=== PATIENT | male | born 1955 | race Two or more races ===

== ENCOUNTER 2016-06-27 09:03 | Outpatient (CLI) | payer OTHER | END 2016-06-27 09:04 | disposition home or self-care (01) | DX: G47.33 Obstructive sleep apnea (adult) (pediatric) (principal) ==

== ENCOUNTER 2016-08-01 09:21 | Outpatient (CLI) | payer OTHER | END 2016-08-01 09:22 | disposition home or self-care (01) | DX: G47.33 Obstructive sleep apnea (adult) (pediatric) (principal) ==

== ENCOUNTER 2017-02-06 10:33 | Outpatient (CLI) | payer OTHER | END 2017-02-06 10:34 | disposition home or self-care (01) | LOC: SC 10:33 | PROVIDERS: ATTEND Nurse Practitioner Family | DX: G47.33 Obstructive sleep apnea (adult) (pediatric) (principal) | CPT/HCPCS: 99212; 99214 ==

== ENCOUNTER 2017-04-06 09:40 | Outpatient (CLI) | payer OTHER ==
[2017-04-06 19:23] LABS: BASOPHILS % (AUTO) 0.7 %; EOSINOPHILS # (AUTO) 0.2 10^3/uL (0.0-0.7); EOSINOPHILS % (AUTO) 3.7 %; HCT - HEMATOCRIT 41.7 % (42.0-52.0); LYMPHOCYTES # (AUTO) 1.2 10^3/uL (1.5-3.5); LYMPHOCYTES % (AUTO) 26.2 %; MEAN CORPUSCULAR HEMOGLOBIN 26.5 pg (27.0-31.0); MEAN CORPUSCULAR HGB CONC 31.2 g/dL (32.0-36.0); MEAN CORPUSCULAR VOLUME 84.8 fL (80.0-94.0); MEAN PLATELET VOLUME 6.9 fL (7.4-11.4); MONOCYTES # (AUTO) 0.4 10^3/uL (0.0-1.0); NEUTROPHILS # (AUTO) 2.8 10^3/uL (1.5-6.6); NEUTROPHILS % (AUTO) 60.4 %; NUCLEATED RED BLOOD CELLS AUTO 0.1 /100WBC; RED BLOOD COUNT 4.91 10^6/uL (4.70-6.10); RED CELL DISTRIBUTION WIDTH 15.4 % (12.0-15.0); UNCORRECTED WHITE BLOOD COUNT 4.7 x10^3/uL; WHITE BLOOD COUNT 4.7 x10^3/uL (4.8-10.8)
[2017-04-06 20:16] LABS: ALBUMIN/GLOBULIN RATIO 1.5 (1.0-2.2); BILIRUBIN,TOTAL 0.6 mg/dL (0.2-1.0); BUN - BLOOD UREA NITROGEN 14 mg/dL (6-20); CALCIUM 9.2 mg/dL (8.5-10.3); CARBON DIOXIDE - CO2 25 mmol/L (21-32); CHLORIDE 108 mmol/L (101-111); CHOL/HDL RATIO 4.9 (<5.0); CHOLESTEROL 238 mg/dL; CREATININE 0.9 mg/dL (0.6-1.2); GFR - MDRD 86 (>89); GLUCOSE 93 mg/dL (70-100); HDL CHOLESTEROL 49 mg/dL; LDL/HDL RATIO 3.4 (<3.6); POTASSIUM 4.1 mmol/L (3.5-5.0); SODIUM 137 mmol/L (135-145); TOTAL PROTEIN 6.9 g/dL (6.7-8.2); TRIGLYCERIDES 122 mg/dL; VLDL CHOLESTEROL 24 mg/dL
== END 2017-04-06 09:41 | disposition home or self-care (01) ==
LOC: LAB.WCP 09:40
PROVIDERS: ATTEND Family Medicine
DX: K62.7 Radiation proctitis (principal); L30.9 Dermatitis, unspecified; D50.9 Iron deficiency anemia, unspecified; G47.33 Obstructive sleep apnea (adult) (pediatric); C61 Malignant neoplasm of prostate; E78.5 Hyperlipidemia, unspecified
CPT/HCPCS: 36415; 80050; 80061; 84153

== ENCOUNTER 2017-04-10 08:38 | Outpatient (CLI) | payer OTHER | END 2017-04-10 08:39 | disposition home or self-care (01) | LOC: SC 08:38 | PROVIDERS: ATTEND Nurse Practitioner Family | DX: G47.33 Obstructive sleep apnea (adult) (pediatric) (principal) | CPT/HCPCS: 99212; 99214 ==

== ENCOUNTER 2017-06-13 08:50 | Outpatient (CLI) | payer OTHER | END 2017-06-13 08:51 | disposition home or self-care (01) | LOC: SC 08:50 | PROVIDERS: ATTEND Nurse Practitioner Family | DX: G47.33 Obstructive sleep apnea (adult) (pediatric) (principal) | CPT/HCPCS: 99212; 99214 ==

== ENCOUNTER 2017-10-23 08:44 | Outpatient (CLI) | payer OTHER | END 2017-10-23 08:45 | disposition home or self-care (01) | LOC: SC 08:44 | PROVIDERS: ATTEND Nurse Practitioner Family | DX: G47.33 Obstructive sleep apnea (adult) (pediatric) (principal) | CPT/HCPCS: 99212; 99214 ==

== ENCOUNTER 2018-01-02 08:35 | Outpatient (CLI) | payer OTHER | END 2018-01-02 08:36 | disposition home or self-care (01) | LOC: RT 08:35 | PROVIDERS: ATTEND Family Medicine | DX: J20.9 Acute bronchitis, unspecified (principal) | CPT/HCPCS: 94010 ==

== ENCOUNTER 2018-04-18 15:35 | Outpatient (CLI) | payer OTHER | END 2018-04-18 15:36 | disposition home or self-care (01) | LOC: SC 15:35 | PROVIDERS: ATTEND Nurse Practitioner Family | DX: G47.33 Obstructive sleep apnea (adult) (pediatric) (principal) | CPT/HCPCS: 99212; 99214 ==

== ENCOUNTER 2018-04-19 09:23 | Outpatient (CLI) | payer OTHER ==
[2018-04-19 09:45] LABS: BASOPHILS % (AUTO) 0.6 %; EOSINOPHILS # (AUTO) 0.2 10^3/uL (0.0-0.7); HGB - HEMOGLOBIN 13.5 g/dL (14.0-18.0); LYMPHOCYTES # (AUTO) 1.1 10^3/uL (1.5-3.5); LYMPHOCYTES % (AUTO) 24.7 %; MEAN CORPUSCULAR HEMOGLOBIN 26.5 pg (27.0-31.0); MEAN CORPUSCULAR HGB CONC 31.9 g/dL (32.0-36.0); MEAN CORPUSCULAR VOLUME 83.1 fL (80.0-94.0); MEAN PLATELET VOLUME 6.4 fL (7.4-11.4); MONOCYTES # (AUTO) 0.4 10^3/uL (0.0-1.0); MONOCYTES % (AUTO) 9.1 %; NEUTROPHILS # (AUTO) 2.8 10^3/uL (1.5-6.6); NEUTROPHILS % (AUTO) 60.6 %; PLT - PLATELET COUNT 355 10^3/uL (130-450); RED BLOOD COUNT 5.09 10^6/uL (4.70-6.10); RED CELL DISTRIBUTION WIDTH 15.4 % (12.0-15.0); WHITE BLOOD COUNT 4.6 x10^3/uL (4.8-10.8)
[2018-04-19 09:54] LABS: ALBUMIN/GLOBULIN RATIO 1.5 (1.0-2.2); BILIRUBIN,TOTAL 0.4 mg/dL (0.2-1.0); CALCIUM 8.6 mg/dL (8.5-10.3); CREATININE 0.9 mg/dL (0.6-1.2); TOTAL PROTEIN 6.7 g/dL (6.7-8.2)
== END 2018-04-19 09:24 | disposition home or self-care (01) ==
LOC: LAB 09:23
PROVIDERS: ATTEND Internal Medicine Gastroenterology
DX: R10.13 Epigastric pain (principal); D64.9 Anemia, unspecified
CPT/HCPCS: 36415; 80053; 83690; 85025

== ENCOUNTER 2018-04-24 09:20 | Outpatient (CLI) | payer OTHER ==
--- NOTE | 2018-04-24 15:39 | XRAY Report ---
Reason: EPIGASTRIC PAIN, COUGH, CHRONIC, ANEMIA Procedure Date: 04/24/2018 Accession Number: [id number] / [id number] Procedure: XR - Chest 2 View X-Ray CPT Code: 47881 FULL RESULT: EXAM: CHEST RADIOGRAPHY EXAM DATE: 04/24/2018 09:32 AM. CLINICAL HISTORY: EPIGASTRIC PAIN, COUGH, CHRONIC, ANEMIA. COMPARISON: 07/09/2014 1:57 AM. TECHNIQUE: 2 views. FINDINGS: Lungs/Pleura: No focal opacities evident. No pleural effusion. No pneumothorax. Normal volumes. Mediastinum: Heart and mediastinal contours are unremarkable. Other: None. IMPRESSION: No acute cardiopulmonary abnormality. RADIA
== END 2018-04-24 09:21 | disposition home or self-care (01) ==
LOC: DI 09:20
PROVIDERS: ATTEND Internal Medicine Gastroenterology
DX: R10.13 Epigastric pain (principal); R05 Cough
CPT/HCPCS: 71046; 93005

== ENCOUNTER 2018-04-26 08:23 | Day surgery (SDC) | payer OTHER ==
[2018-04-26] MEDS ORDERED: LACTATED RINGERS 1,000 ML IV ONE (08:43)
[2018-04-26] MEDS ORDERED: LACTATED RINGERS 500 ML IV ONE (08:48)
[2018-04-26] MEDS ORDERED: LIDO GARGLE 30 ML BOTTLE ONE (10:11)
[2018-04-26] MEDS ORDERED: fentaNYL 100 MCG/2 ML VIAL IVP ONE (10:30)
[2018-04-26] MEDS ORDERED: MIDAZOLAM 2 MG/2 ML VIAL IVP ONE (10:30)
[2018-04-26 11:14] VITALS: BP 111/80
== END 2018-04-26 08:24 | disposition home or self-care (01) ==
LOC: SDS 08:23
PROVIDERS: ATTEND Internal Medicine Gastroenterology
PROC: 0DB78ZX Excision of Stomach, Pylorus, Via Natural or Artificial Opening Endoscopic, Diagnostic (ICD-10-PCS; 2018-04-26)
PROC: 0DB68ZZ Excision of Stomach, Via Natural or Artificial Opening Endoscopic (ICD-10-PCS; 2018-04-26)
PROC: 0DB58ZX Excision of Esophagus, Via Natural or Artificial Opening Endoscopic, Diagnostic (ICD-10-PCS; principal; 2018-04-26 14:30)
DX: R10.13 Epigastric pain (principal); K21.0 Gastro-esophageal reflux disease with esophagitis; K31.7 Polyp of stomach and duodenum; R13.10 Dysphagia, unspecified; R05 Cough; D50.9 Iron deficiency anemia, unspecified; K62.7 Radiation proctitis; G47.33 Obstructive sleep apnea (adult) (pediatric); Z85.46 Personal history of malignant neoplasm of prostate; Z83.79 Family history of other diseases of the digestive system; Z86.010 Personal history of colon polyps; Z79.899 Other long term (current) drug therapy
CPT/HCPCS: 43239; 43251; A9270; J7120

== ENCOUNTER 2018-05-17 19:26 | Outpatient (CLI) | payer OTHER ==
--- NOTE | 2018-05-18 12:04 | Ultrasound Report ---
Reason: EPIGASTRIC PAIN Procedure Date: 05/17/2018 Accession Number: [id number] / [id number] Procedure: US - Abdomen Limited CPT Code: FULL RESULT: EXAM: ABDOMEN ULTRASOUND LIMITED, RUQ EXAM DATE: 05/17/2018 07:58 PM. CLINICAL HISTORY: Epigastric pain. COMPARISON: None. TECHNIQUE: Real-time scanning was performed with static images obtained. FINDINGS: Liver: Echotexture is mildly heterogeneous and echogenic which can be seen with steatosis. Right lobe of the liver measures at least 12.8 cm. Main portal vein flow: Hepatopetal. Gallbladder: Normal. No stones, wall thickening, or sonographic Everett's sign. Biliary System: CBD measures 4 mm. No intrahepatic or extrahepatic ductal dilatation. Other: Right kidney measures up to 10.6 cm and is grossly unremarkable with no hydronephrosis. IMPRESSION: No cholecystitis or cholelithiasis. Echogenic liver which can be seen with parenchymal disease such as steatosis. RADIA
== END 2018-05-17 19:27 | disposition home or self-care (01) ==
LOC: DI 19:26
PROVIDERS: ATTEND Internal Medicine Gastroenterology
DX: R10.13 Epigastric pain (principal)
CPT/HCPCS: 76705

== ENCOUNTER 2018-06-06 11:22 | Outpatient (CLI) | payer OTHER ==
[2018-06-06 19:41] LABS: ALBUMIN 4.1 g/dL (3.2-5.5); ALBUMIN/GLOBULIN RATIO 1.4 (1.0-2.2); ALKALINE PHOSPHATASE 39 IU/L (42-121); ALT ALANINE AMINOTRANSFERASE 18 IU/L (10-60); AST ASPARTATE AMINOTRANSFERASE 21 IU/L (10-42); BUN - BLOOD UREA NITROGEN 21 mg/dL (6-20); CALCIUM 9.4 mg/dL (8.5-10.3); CARBON DIOXIDE - CO2 24 mmol/L (21-32); CHLORIDE 107 mmol/L (101-111); CHOL/HDL RATIO 5.5 (<5.0); CHOLESTEROL 251 mg/dL; CREATININE 0.8 mg/dL (0.6-1.2); GFR - MDRD 98 (>89); GLUCOSE 85 mg/dL (70-100); HDL CHOLESTEROL 46 mg/dL; LDL CHOLESTEROL,CALCULATED 184 mg/dL; SODIUM 138 mmol/L (135-145); VLDL CHOLESTEROL 21 mg/dL
== END 2018-06-06 23:59 | disposition home or self-care (01) ==
LOC: LAB.WCP 11:22
PROVIDERS: ATTEND Family Medicine
DX: E78.5 Hyperlipidemia, unspecified (principal)
CPT/HCPCS: 36415; 80053; 80061; 83721

== ENCOUNTER 2018-06-18 11:57 | Outpatient (CLI) | payer OTHER ==
[2018-06-18] MEDS ORDERED: SINCALIDE 5 MCG VIAL ONE (14:39)
[2018-06-18] MEDS ORDERED: SINCALIDE 1.72 MCG in SODIUM CHLORIDE 0.9% 50 ML IV ONE (16:31)
--- NOTE | 2018-06-18 16:32 | Nuclear Medicine Report ---
Reason: EPIGASTRIC PAIN Procedure Date: 06/18/2018 Accession Number: [id number] / [id number] Procedure: NM - Hepatobiliary HIDA w/ Rx CPT Code: FULL RESULT: EXAM: HEPATOBILIARY SCAN WITH CCK/KINEVAC ADMINISTRATION EXAM DATE: 06/18/2018 04:22 PM. CLINICAL HISTORY: EPIGASTRIC PAIN. COMPARISON: None. TECHNIQUE: Following the intravenous administration of 5 mCi of Tc99m Mebrofenin, a hepatobiliary scan was done centered on the liver and gallbladder in multiple sequential images and projections. Following the intravenous administration of 1.7 mcg of CCK/ Kinevac over the course of approximately 60 minutes, dynamic imaging was done and the gallbladder ejection fraction was calculated. FINDINGS: Normal extraction of tracer from the blood pool indicating normal hepatocellular function. The liver size and shape is grossly within normal limits. Appearance of tracer in the biliary tree as early as 0-5 minutes, within normal limits. Appearance of tracer in the gallbladder as early as 5-10 minutes, within normal limits, with good progression of filling throughout the remainder of the initial hour. Appearance of tracer in the small bowel as early as 35 minutes, within normal limits. With CCK administration, the gallbladder demonstrates an effective contraction. The gallbladder ejection fraction is calculated to be 85%, well above the lower limit of normal of 38% for a 60-minute injection. No evidence of enteric reflux into the stomach. No significant collection of tracer remaining in the common bile duct by the end of the study. IMPRESSION: 1. No scintigraphic evidence of acute cholecystitis. 2. Patent common bile duct. 3. Gallbladder ejection fraction is in the normal range. RADIA
== END 2018-06-18 11:58 | disposition home or self-care (01) ==
LOC: DI 11:57
PROVIDERS: ATTEND Internal Medicine Gastroenterology
DX: R10.13 Epigastric pain (principal)
CPT/HCPCS: 78227; J7040

== ENCOUNTER 2018-06-19 14:32 | Outpatient (CLI) | payer OTHER ==
--- NOTE | 2018-06-19 16:44 | XRAY Report ---
Reason: INFECTION OF PREPATELLAR BURSA Procedure Date: 06/19/2018 Accession Number: [id number] / [id number] Procedure: WCP - Knee 2 View LT CPT Code: FULL RESULT: EXAM: LEFT KNEE RADIOGRAPHY EXAM DATE: 06/19/2018 02:52 PM. CLINICAL HISTORY: INFECTION OF PREPATELLAR BURSA. COMPARISON: None. TECHNIQUE: 2 views. FINDINGS: Bones: No fractures, bone erosion or definite acute abnormality. Moderate sized quadriceps insertion patellar enthesophyte/spur. Joints: Normal. No effusion. No subluxations. Soft Tissues: Anterior, suprapatellar soft tissue edema/swelling. IMPRESSION: 1. Anterior, suprapatellar soft tissue edema/swelling. 2. No definite acute osseous abnormality. RADIA
== END 2018-06-19 14:33 | disposition home or self-care (01) ==
LOC: DI.WCP 14:32
PROVIDERS: ATTEND Physician Assistant
DX: M71.162 Other infective bursitis, left knee (principal)

== ENCOUNTER 2018-08-16 07:19 | Day surgery (SDC) | payer OTHER ==
[2018-08-16] MEDS ORDERED: LACTATED RINGERS 1,000 ML IV ONE (07:22)
[2018-08-16] MEDS ORDERED: LIDO GARGLE 30 ML BOTTLE ONE (08:44)
[2018-08-16] MEDS ORDERED: LIDO GARGLE 30 ML BOTTLE TOP ONE (08:53)
[2018-08-16] MEDS ORDERED: fentaNYL 100 MCG/2 ML VIAL IVP ONE (08:54)
[2018-08-16] MEDS ORDERED: MIDAZOLAM 2 MG/2 ML VIAL IVP ONE (08:54)
[2018-08-16 09:43] VITALS: BP 102/78
== END 2018-08-16 07:20 | disposition home or self-care (01) ==
LOC: SDS 07:19
PROVIDERS: ATTEND Internal Medicine Gastroenterology
PROC: 0DB68ZZ Excision of Stomach, Via Natural or Artificial Opening Endoscopic (ICD-10-PCS; 2018-08-16)
PROC: 0DB38ZX Excision of Lower Esophagus, Via Natural or Artificial Opening Endoscopic, Diagnostic (ICD-10-PCS; principal; 2018-08-16 08:15)
DX: K21.0 Gastro-esophageal reflux disease with esophagitis (principal); K31.7 Polyp of stomach and duodenum; G47.33 Obstructive sleep apnea (adult) (pediatric); E78.00 Pure hypercholesterolemia, unspecified
CPT/HCPCS: 43239; A9270; J7120

== ENCOUNTER 2018-09-13 11:15 | Outpatient (CLI) | payer OTHER ==
[2018-09-13 19:06] LABS: ALBUMIN 3.7 g/dL (3.2-5.5); ALBUMIN/GLOBULIN RATIO 1.3 (1.0-2.2); BILIRUBIN,TOTAL 0.7 mg/dL (0.2-1.0); CREATININE 0.8 mg/dL (0.6-1.2); TOTAL PROTEIN 6.5 g/dL (6.7-8.2)
[2018-09-13 19:10] LABS: HEMOGLOBIN A1C 0.58 g/dL; HEMOGLOBIN A1C % 5.7 % (4.6-6.2)
== END 2018-09-13 11:16 | disposition home or self-care (01) ==
LOC: LAB.WCP 11:15
PROVIDERS: ATTEND Family Medicine
DX: R73.9 Hyperglycemia, unspecified (principal)
CPT/HCPCS: 36415; 80053; 83036

== ENCOUNTER 2018-09-25 08:00 | Outpatient (CLI) | payer OTHER ==
[2018-09-25 19:15] LABS: CHOL/HDL RATIO 4.5 (<5.0); CHOLESTEROL 248 mg/dL; HDL CHOLESTEROL 55 mg/dL; LDL CHOLESTEROL,CALCULATED 169 mg/dL; LDL/HDL RATIO 3.1 (<3.6); VLDL CHOLESTEROL 24 mg/dL
== END 2018-09-25 08:01 | disposition home or self-care (01) ==
LOC: LAB.WCP 08:00
PROVIDERS: ATTEND Physician Assistant Medical
DX: E78.5 Hyperlipidemia, unspecified (principal)
CPT/HCPCS: 36415; 80061; 83721

== ENCOUNTER 2018-12-29 10:10 | Emergency (ER) | payer OTHER ==
[2018-12-29 10:17] VITALS: BP 124/78
--- NOTE | 2018-12-29 10:30 | ED Physician Documentation ---
History of Present Illness - Stated complaint Stated Complaint: SWOLLEN CALF - Chief complaint Chief Complaint: Wound - Additonal information Additional information: This is a 63-year-old male who presents with an area of swelling from his left thigh. He states that on of this week he began developing some redness and pain over his left calf, the redness and swelling has increased until he developed a hearn yesterday, this open and started draining some white/green purulent fluid. The area is quite tender. He denies fever, chills, or other skin lesions. Patient had an abscess on his thigh in the past, this resolved after multiple course of antibiotics and incision and drainage. He denies immunocompromise or diabetes. Review of Systems Constitutional: denies: Fever GI: denies: Vomiting Skin: reports: Lesions Immunocompromised: denies: Immunocompromised PD PAST MEDICAL HISTORY - Past Medical History Cardiovascular: None Respiratory: Sleep apnea, CPAP use Endocrine/Autoimmune: None GI: GERD : Benign prostate hypertrophy, Kidney stones HEENT: None Psych: None Musculoskeletal: None Derm: Eczema - Past Surgical History Past Surgical History: Yes General: Colonoscopy - Present Medications Home Medications: Ambulatory Orders Medication Instructions Recorded Confirmed Cephalexin [Keflex] 500 mg PO Q6H #40 capsule 12/29/18 Pravastatin Sodium 12/29/18 Sulfamethox/Trimeth 800/160 1 each PO BID #20 tablet 12/29/18 [Bactrim Ds 800/160] - Allergies Allergies/Adverse Reactions: Allergies Allergy/AdvReac Type Severity Reaction Status Date / Time No Known Drug Allergies Allergy Verified 12/29/18 10:17 - Social History Does the pt smoke?: No Smoking Status: Never smoker Does the pt drink ETOH?: No Does the pt have substance abuse?: No - Immunizations Immunizations are current?: Yes - POLST Patient has POLST: Yes PD ED PE NORMAL - Vitals Vital signs reviewed: Yes - General General: Alert and oriented X 3, No acute distress - HEENT HEENT: PERRL - Neck Neck: Supple, no meningeal sign - Cardiac Cardiac: Strong equal pulses - Respiratory Respiratory: No respiratory distress - Abdomen Abdomen: Soft, Non distended - Derm Derm: Warm and dry - Extremities Extremities: Other (Over the left calf there is a 3 cm x 3 cm area of induration and erythema. There is a central pustule, which with light pressure drains a small amount of purulent fluid. The lesion is>10cm from the ankle and knee, Pt has full active ROM of these joints with no pain. Limb is neurovascularly intact.) - Neuro Neuro: Alert and oriented X 3 - Psych Psych: Normal mood, Normal affect Results - Vitals Vitals: Vital Signs - 24 hr 12/29/18 10:15 Temperature 36.6 C Heart Rate 98 Respiratory 18 Rate Blood Pressure 124/78 O2 Saturation 98 Oxygen O2 Source Room air Procedures - Abscess I&D (location) Lower extremity left Preparation: Confirmed with ultrasound, Lidocaine 2 % Incision: Incised with scalpel Other: Pt tolerated well, Dressing applied PD MEDICAL DECISION MAKING - ED course Complexity details: considered differential (Cellulitis, abscess, pyomyositis, superficial thrombophlebitis) ED course: Patient presents with redness swelling and purulent drainage from his calf. There is minimal fluctuance on exam, with ultrasound there is a very small amount of superficial fluid seen around the area that is spontaneously draining. After numbing and cleaning the area I made a small incision around the area that was spontaneously draining and expressed around 1.5 cc of purulent fluid. I do not see any signs of deeper infection on ultrasound, and patient has no systemic toxicity or fever to suggest more serious infection. It appears that most of the pus has already drained spontaneously, I instructed him on wound care, and we will put him on Bactrim and Keflex due to his overlying cellulitis and induration. He will follow-up with Dr. Klein in 2-3 days, and will return to ED if he is unable to do so or has any worsening symptoms in the interim. Patient verbalized understanding, his questions were answered and he was discharged home Departure - Departure Disposition: 01 Home, Self Care Clinical Impression: Abscess Condition: Good Instructions: ED Abscess IandD Follow-Up: Kevyn Klein MD [Primary Care Provider] - Within 3 Days (For recheck of abscess and surrounding cellulitis) Prescriptions: Cephalexin [Keflex] 500 mg PO Q6H #40 capsule Sulfamethox/Trimeth 800/160 [Bactrim Ds 800/160] 1 each PO BID #20 tablet Comments: You were seen today for an abscess. This has been drained. You may have some continued drainage or oozing of blood from the abscess for several days. Take the entire course of the antibiotics. When you shower it is okay to let clean water run over the incision site. Place a clean bandage over the incision site and change it at least daily, or whenever it becomes saturated. If you develop fever, increasing pain, heavy bleeding, or signs of spreading infection such as redness that is expanding or streaking up from the abscess site, return to the ED. Follow up with your PCP in 2-3 days for a recheck. If you have worsening or cannot get into see your primary care provider, return to the emergency depar tment. You can take Tylenol or ibuprofen for pain.
[2018-12-29] MEDS ORDERED: LIDOCAINE 2%-EPI 1:100000 20 ML MDV SUBQ STA (10:31)
[2018-12-29] MEDS ORDERED: BUFFERED LIDOCAINE 10 ML SYRINGE SUBQ STA (10:31)
== END 2018-12-29 10:59 | disposition home or self-care (01) ==
LOC: ED 10:10
DX: L02.416 Cutaneous abscess of left lower limb (principal)
CPT/HCPCS: 10060; 96372

== ENCOUNTER 2019-01-01 08:00 | Outpatient (CLI) | payer OTHER | END 2019-01-01 23:59 | disposition home or self-care (01) | LOC: LAB.R 08:00 | PROVIDERS: ATTEND Family Medicine | DX: L02.419 Cutaneous abscess of limb, unspecified (principal) | CPT/HCPCS: 87070; 87075; 87205 ==

== ENCOUNTER 2019-05-20 08:09 | Outpatient (CLI) | payer OTHER ==
[2019-05-20 09:05] VITALS: BP 118/78
--- NOTE | 2019-05-20 09:05 | SLEEP CARE CONSULTATION ---
Information from patient questionnaire entered by Stefany Rowley. I have reviewed and concur with the information entered by Stefany Rowley. This document represents the service I personally performed and the decisions made by me, Pavithra Brambila, RN, MSN, [employer]. History of Present Illness Previous diagnosis: Moderate, Obstructive Sleep Apnea-Hypopnea Syndrome, Central Sleep Apnea-Hypopnea Syndrome AHI: 17.7 Reason for follow up: annual Equipment type: CPAP Equipment obtained from: [facility] Mask style: Nasal (Dreamwear) Mask brand: Respironics Backup mask available: Yes Last cushion change: 2 weeks Prior sleep studies: Yes CPAP Compliance Data - Data Reviewed with Patient Average duration of nightly device use: 7h 3m Compliance rate %: 89 Current pressure setting (cmH2O): 10 Average residual AHI: 3.6 (can be up to 8 intermittently, no pain medications /muscle relaxants/ alcohol before bed. ) Average large leak: zero Subjective Missed days of use due to: reports: travel (uses a portable CPAP ) Patient concerns: denies: aerophagia, mask discomfort, air blowing in eyes, mask leak noise, condensation in mask/hose, nasal congestion, dry mouth, nose, throat, epistaxis Observed to snore while using device: No Current pressure setting perceived as: comfortable On therapy, patient: reports: sleeping better, awakening more refreshed, being more awake and alert during the day, more rested overall, drowsiness while driving Initial [place] Sleepiness Scale score: 17 Current [place] Sleepiness Scale score: 13 Allergies and Home Medications Known drug allergies: Yes Home medication list reviewed: Yes (He will bring updated list later ) Allergy and home medication list: excema drug gerd drug allergy drug Review of Systems Review of systems same as previous: Yes Physical Exam Blood Pressure: 118/78 Cuff size: regular Heart Rate: 86 O2 Saturation: 98 Height: 5 ft 6 in Weight: 191 lb 12.8 oz Weight change since last visit: lost 8 pounds Body Mass Index: 30.9 BMI Classification: Obesity Class 1 Impression and Plan 1. Central and Obstructive Sleep Apnea-Hypopnea Syndrome, moderate, with good treatment compliance and good apnea control. On CPAP therapy, the patient has better sleep quality and is more rested overall. Since his AHI is intermittently elevated, I will change to a autoCPAP pressure [id number]. He is to contact me if the pressure change is uncomfortable. Since he is running out water a few times a week, I had him plug in his device to check the settings. The humidity is set at auto and the heated hose is at 73degrees. So I advised him to reduce the heated hose a couple of degrees. If continued problems, he can have [facility] check the device for malfunction. We discussed cleaning questions of CPAP and reason for use of distilled water. Reference sheet given. Patient's apnea severity and rationale for treatment to reduce apnea, improve sleep quality and reduce cardiovascular and cerebrovascular events was reviewed. He has lost weight - plans on for apressur - informed how can affect his CPAP pressure and symptoms to report for pressure adjustment. Patient voiced at end of discussion that his sleep is being affected by thoughts of how to assist family members as sister has stage 4 cancer and is caregiver. If he wakes in future with thoughts on mind due to care of family, writing out concerns can be a release so can return to sleep and deal with in the morning. He is then to read something soothing until sleep. Patient agreed with plan. * * Change CPAP pressure to 10-12 cmH2O * Adjust heated hose * Implement cleaning methods discussed and use of distilled water. * Notify me if snoring with mask or feeling that the pressure is too much or too little * Attempt to lose weight * Call this office if any problems using CPAP * Return for follow up in 1 year , or sooner if concerns arise Time Spent with Patient (minutes): 32 I spent 100% of this visit face to face with the patient with greater than 50% of this was spent time counseling the patient and coordination of care.
== END 2019-05-20 08:10 | disposition home or self-care (01) ==
LOC: SC 08:09
PROVIDERS: ATTEND Nurse Practitioner Family
DX: G47.33 Obstructive sleep apnea (adult) (pediatric) (principal); G47.31 Primary central sleep apnea; E66.9 Obesity, unspecified; Z68.30 Body mass index [BMI] 30.0-30.9, adult
CPT/HCPCS: 99212; 99214

== ENCOUNTER 2019-11-05 10:40 | Emergency (ER) | payer OTHER ==
[2019-11-05 12:18] VITALS: BP 119/78
[2019-11-05] MEDS ORDERED: KETOROLAC 60 MG/2 ML VIAL IM STA (12:19)
[2019-11-05] MEDS ORDERED: DEXAMETHASONE 10 MG/ML VIAL PO STA (12:19)
[2019-11-05] MEDS ORDERED: CHERRY SYRUP 10 ML UDC PO ONE (12:19)
--- NOTE | 2019-11-05 12:35 | ED Physician Documentation ---
PD HPI BACK PAIN - Stated complaint Stated Complaint: BACK SPASMS - Chief complaint Chief Complaint: Back Pain - History obtained from History obtained from: Patient - History of Present Illness Timing - onset: How many weeks ago (2 1/2) Timing - duration: Weeks (2 1/2) Timing - details: Abrupt onset, Still present, Waxing and waning Location: Mid, Lower, Left Quality: Pain, Spasm, Sharp Associated symptoms: No: Fever, Weakness, Numbness, Incontinent of urine, Unable to urinate, Hematuria, Incontinent of stool Improves with: Rest, Position, Meds Worsened by: Movement Contributing factors: Other (lifted a wine barrel) Similar symptoms before: Has not had sx before Recently seen: Clinic - Additional information Additional information: Previously well 64-year-old male retired from the [employer] lifted a wine barrel into his truck 2 and half weeks ago and at that time he did not have any specific pain to his back. Several days later he developed acute spasm in his back while he was standing in his kitchen. He fell forward and hit his side against the hip hop artist when this occurred. He has had pain and spasm in the left side of his back since and he has had some improvement periodically. He went in to see Dr. Klein and he has been using a heating pack and he has taken some Robaxin. He did not find the Robaxin helpful for pain relief. He has been using the heating pack a lot. Review of Systems Constitutional: denies: Fever Eyes: denies: Decreased vision Ears: denies: Ear pain Nose: denies: Congestion Throat: denies: Sore throat Cardiac: denies: Chest pain / pressure, Palpitations Respiratory: denies: Dyspnea, Cough GI: denies: Abdominal Pain, Nausea, Vomiting : denies: Dysuria, Frequency Skin: denies: Rash Musculoskeletal: reports: Back pain. denies: Neck pain, Extremity pain Neurologic: denies: Generalized weakness, Focal weakness, Numbness, Difficulty speaking, Near syncope PD PAST MEDICAL HISTORY - Past Medical History Cardiovascular: High cholesterol Respiratory: Sleep apnea, CPAP use Neuro: None Endocrine/Autoimmune: None GI: GERD : Benign prostate hypertrophy, Kidney stones HEENT: None Psych: None Musculoskeletal: None Derm: Eczema - Past Surgical History Past Surgical History: Yes General: Colonoscopy - Present Medications Home Medications: Ambulatory Orders Medication Instructions Recorded Confirmed Pravastatin Sodium 1 tab PO DAILY 08/24/19 06/30/20 Cyclobenzaprine [Flexeril] 10 mg PO TID PRN #20 tablet 11/05/19 Dupilumab [Dupixent] 300 mg SQ ONCE 11/05/19 11/05/19 Hydrocodone/Acetaminophen 1 - 2 each PO Q6H PRN #14 tablet 11/05/19 [Hydrocodon-Acetaminophen 5-325] Methocarbamol [Robaxin-750] 750 mg PO TID PRN 11/05/19 11/05/19 - Allergies Allergies/Adverse Reactions: Allergies Allergy/AdvReac Type Severity Reaction Status Date / Time No Known Drug Allergies Allergy Verified 11/05/19 10:59 - Social History Does the pt smoke?: No Smoking Status: Never smoker Does the pt drink ETOH?: No Does the pt have substance abuse?: No - Immunizations Immunizations are current?: No Immunizations: TDAP >10years/unknown - POLST Patient has POLST: Yes PD ED PE NORMAL - Vitals Vital signs reviewed: Yes (normal ) - General General: Alert and oriented X 3, Well developed/nourished, Other (64 y/o male motionless on an exam chair with his hands tightly grabbing the side rails. ) - HEENT HEENT: Atraumatic, PERRL, EOMI - Neck Neck: Supple, no meningeal sign - Cardiac Cardiac: RRR, No murmur - Respiratory Respiratory: No respiratory distress, Clear bilaterally - Abdomen Abdomen: Normal bowel sounds, Soft, Non tender, Non distended, No organomegaly - Back Back: No CVA TTP, No spinal TTP, Other (There is marked spasm with tightness to the left paraspinous muscles from the mid thorac to the lower L spine and this does not extend into the sciatic notch. 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, No motor deficit, No sensory deficit, Normal speech Eye Opening: Spontaneous Motor: Obeys Commands Verbal: Oriented GCS Score: 15 - Psych Psych: Normal mood, Normal affect Results - Vitals Vitals: Vital Signs - 24 hr 11/05/19 11/05/19 10:52 12:16 Temperature 37.2 C 36.4 C L Heart Rate 98 74 Respiratory 20 16 Rate Blood Pressure 104/73 119/78 O2 Saturation 99 99 Oxygen O2 Source Room air PD MEDICAL DECISION MAKING - ED course Complexity details: considered differential, d/w patient ED course: 64-year-old male with atypical loading injury to his back and following that acute spasm has been using a heating pack nearly continuously since then. I have asked the patient to discontinue the use of the heating pack we have administered a dose of dexamethasone 10 mg orally and we have given him 60 mg of Toradol IM. I will provide some pain medication a muscle relaxant for the patient for use at home and I have instructed him to use ice and stretch and expect to have resolution within 2 to 5 days. Departure - Departure Disposition: 01 Home, Self Care Clinical Impression: Spasm of back muscles Condition: Stable Instructions: ED Spasm Back No Trauma Follow-Up: Kevyn Klein MD [Primary Care Provider] - Prescriptions: Cyclobenzaprine [Flexeril] 10 mg PO TID PRN #20 tablet PRN Reason: Spasms Hydrocodone/Acetaminophen [Hydrocodon-Acetaminophen 5-325] 1 - 2 each PO Q6H PRN #14 tablet PRN Reason: pain
== END 2019-11-05 12:51 | disposition home or self-care (01) ==
LOC: ED 10:40
DX: M62.830 Muscle spasm of back (principal)
CPT/HCPCS: 96374; 99283; 99284; A9270

== ENCOUNTER 2020-05-13 08:00 | Outpatient (CLI) | payer OTHER ==
[2020-05-13 18:51] LABS: ALBUMIN 4.7 g/dL (3.2-5.5); ALBUMIN/GLOBULIN RATIO 1.6 (1.0-2.2); ALKALINE PHOSPHATASE 50 IU/L (42-121); ALT ALANINE AMINOTRANSFERASE 18 IU/L (10-60); AST ASPARTATE AMINOTRANSFERASE 21 IU/L (10-42); BILIRUBIN,TOTAL 1.2 mg/dL (0.2-1.0); BUN - BLOOD UREA NITROGEN 21 mg/dL (6-20); CALCIUM 9.5 mg/dL (8.5-10.3); CARBON DIOXIDE - CO2 24 mmol/L (21-32); CHLORIDE 107 mmol/L (101-111); CHOL/HDL RATIO 4.1 (<5.0); CHOLESTEROL 193 mg/dL; CREATININE 0.9 mg/dL (0.6-1.2); GLUCOSE 95 mg/dL (70-100); HDL CHOLESTEROL 47 mg/dL; LDL CHOLESTEROL,CALCULATED 126 mg/dL; LDL/HDL RATIO 2.7 (<3.6); SODIUM 139 mmol/L (135-145); TOTAL PROTEIN 7.6 g/dL (6.7-8.2); VLDL CHOLESTEROL 20 mg/dL
[2020-05-13 18:58] LABS: CRP - C-REACTIVE PROTEIN < 1.0 mg/dL (0-1.0)
[2020-05-13 19:10] LABS: BASOPHILS % (AUTO) 0.6 %; EOSINOPHILS # (AUTO) 0.1 10^3/uL (0.0-0.7); EOSINOPHILS % (AUTO) 1.4 %; HGB - HEMOGLOBIN 14.5 g/dL (14.0-18.0); LYMPHOCYTES % (AUTO) 20.9 %; MEAN CORPUSCULAR HEMOGLOBIN 26.1 pg (27.0-31.0); MEAN CORPUSCULAR HGB CONC 30.3 g/dL (32.0-36.0); MEAN CORPUSCULAR VOLUME 86.3 fL (80.0-94.0); MEAN PLATELET VOLUME 8.6 fL (7.4-11.4); MONOCYTES # (AUTO) 0.4 10^3/uL (0.0-1.0); MONOCYTES % (AUTO) 9.1 %; NEUTROPHILS # (AUTO) 3.3 10^3/uL (1.5-6.6); NEUTROPHILS % (AUTO) 67.8 %; PLT - PLATELET COUNT 418 10^3/uL (130-450); RED BLOOD COUNT 5.55 10^6/uL (4.70-6.10); RED CELL DISTRIBUTION WIDTH 14.5 % (12.0-15.0); WHITE BLOOD COUNT 4.8 x10^3/uL (4.8-10.8)
== END 2020-05-13 23:59 | disposition home or self-care (01) ==
LOC: LAB.WCP 08:00
PROVIDERS: ATTEND Nurse Practitioner
DX: F41.9 Anxiety disorder, unspecified (principal); R73.01 Impaired fasting glucose; K21.00 Gastro-esophageal reflux disease with esophagitis, without bleeding; E78.5 Hyperlipidemia, unspecified; K62.7 Radiation proctitis; C61 Malignant neoplasm of prostate; F32.9 Major depressive disorder, single episode, unspecified; M35.3 Polymyalgia rheumatica
CPT/HCPCS: 36415; 80050; 80061; 83721; 85651; 86140

== ENCOUNTER 2020-05-22 10:35 | Outpatient (CLI) | payer OTHER ==
--- NOTE | 2020-05-22 10:14 | SLEEP CARE CONSULTATION ---
Information from patient questionnaire entered by Christina Richards. I have reviewed and concur with the information entered by Christina Richards. This document represents the service I personally performed and the decisions made by me, Pavithra Brambila, RN, MSN, [employer]. History of Present Illness Service Date and Time: 05/22/2020 0930 Previous diagnosis: Moderate, Obstructive Sleep Apnea-Hypopnea Syndrome, Central Sleep Apnea-Hypopnea Syndrome AHI: 17.7 (in 2011) Reason for follow up: annual (last seen 05/2019) Equipment type: CPAP Equipment obtained from: [employer] (getting supplies as needed) Mask style: Nasal Mask brand: Respironics (Dreamwear) Backup mask available: Yes (old mask ) Last cushion change: 5 days ago Prior sleep studies: Yes Year and Where: 2011 - [facility] Type of Sleep Study: Polysomnography HPI additional information: Review of past visit notes is that the CPAP pressure was ordered to be adjusted to [id number] for intermittent increase in residual AHI. Humidity and heated hose were instructed to be adjusted to reduce water loss from CPAP. Cleaning questions answered. Patient had lost weight with plans for losing 15 more pounds. Discussion of how weight affects apnea / CPAP pressure and symptoms to report to adjust CPAP with weight change. Acute insomnia due to sister with Cancer, methods discussed to reduce insomnia. Since then patient's sister has passed affecting his CPAP use when leaving unexpectedly to assist his mother. Condolences were expressed. CPAP Compliance Data - Data Reviewed with Patient Average duration of nightly device use: 6 hr 42 min Compliance rate %: 74 (180 days) Current pressure setting (cmH2O): 10-20 Average residual AHI: 3.1 Subjective Missed days of use due to: reports: other ( of sister) Patient concerns: denies: aerophagia, mask discomfort, air blowing in eyes, mask leak noise (likes new DReamwear headgear much better ), condensation in mask/hose, nasal congestion, dry mouth, nose, throat, epistaxis, other Observed to snore while using device: No Current pressure setting perceived as: comfortable On therapy, patient: reports: sleeping better, awakening more refreshed, being more awake and alert during the day, more rested overall, drowsiness while driving (reports drifting out of radha if long trips over 2 hours and pulls ) Initial [place] Sleepiness Scale score: 17 (in 2012) Current [place] Sleepiness Scale score: 10 Allergies and Home Medications Known drug allergies: No Home medication list reviewed: Yes Allergy and home medication list: Pravastatin 20mg HS Sertraline 100mg daily pantoprazole 40mg Review of Systems Review of systems same as previous: No (dysphagia consultation with GI and endoscopy ordered) Physical Exam Height: 5 ft 6 in Weight: 188 lb (lost 3 pounds) Body Mass Index: 30.3 BMI Classification: Obese Impression and Plan 1. Obstructive Sleep Apnea-Hypopnea Syndrome, moderate, with good treatment compliance and good apnea control. On CPAP therapy, the patient has better sleep quality and is more rested overall. Patients [place] Sleepiness scale has reduced from 17 to 10 with CPAP use and is pleased with benefit of treatment. However, on long drives he has noted some drowsiness especially if over 2 hours and has to tack puller machine. Thus he was advised to schedule frequent stops and before this 2 hour time to prevent occurrence of drowsiness with rationale discussed. Patient agreed with plan. Patient has lost weight. Currently patients BMI is 30.3 obesity class . I reviewed how obesity increases the risk of apnea, CPAP pressure requirements and overall health risks especially cardiovascular and diabetes. Thus patient is advised to continue to lose weight. Weight loss can be done with reducing portion size, reducing refined foods and balancing content with vegetables, fruit and protein. In addition tracking food intake will allow awareness of how to modify diet to achieve weight loss goals. Also eating more slowly will allow more awareness of food intake and enjoyment of food while assisting patient to modify intake at each meal. Patient states he eats only one meal a day and does not understand why he cannot lose more weight. Often when only eating daily, weight is not lost due to body's response to this pattern of eating.I explained how a diet consultation can be helpful in achieving optimal weight loss goals but showing him how to adjust his diet. Patient encouraged to discuss their weight loss goals with their PCP and consider a referral to a shactor helper. He agreed with plan. The patient's CPAP pressure range should accom modate some weight loss. Symptoms to report for additional pressure adjustment discussed. Patient's apnea severity and rationale for treatment to reduce apnea, improve sleep quality and reduce cardiovascular and cerebrovascular events was reviewed. * Continue auto CPAP pressure at 10-20 cmH2O * Implement methods discussed to reduce drowsy driving * Consider diet consult and contact PCP for referral * Notify me if snoring with mask or feeling that the pressure is too much or too little * Continue to lose weight * Call this office if any problems using CPAP * Return for follow up in 1 year , or sooner if concerns arise Counseling Topics: Weight loss health impact Visit Type: Telehealth Video Video Type: Doximity Patient Location: Home Location of Provider: Home Patient agrees and consents to this telehealth visit type: Yes Patient agrees to have their insurance billed: Yes Time Spent with Patient (minutes): 26 and 8 minutes chart review prior and 5 minutes documentation after Provider Statement: I spent 100% of the Telehealth Video Call with the patient with greater than 50% spent counseling the patient and coordination of care.
== END 2020-05-22 10:36 | disposition home or self-care (01) ==
LOC: SC 10:35
PROVIDERS: ATTEND Nurse Practitioner Family
DX: G47.31 Primary central sleep apnea (principal); G47.33 Obstructive sleep apnea (adult) (pediatric); E66.9 Obesity, unspecified; Z68.30 Body mass index [BMI] 30.0-30.9, adult

== ENCOUNTER 2021-05-20 09:21 | Outpatient (CLI) | payer MEDICARE, OTHER ==
--- NOTE | 2021-05-20 10:07 | SLEEP CARE CONSULTATION ---
Information from patient questionnaire entered by Luciano Cummins MA. I have reviewed and concur with the information entered by Luciano Cummins MA. This document represents the service I personally performed and the decisions made by , Pat Ross ARNP. History of Present Illness Service Date and Time: 05/20/2021 0921 Previous diagnosis: Moderate, Obstructive Sleep Apnea-Hypopnea Syndrome, Central Sleep Apnea-Hypopnea Syndrome AHI: 17.7 (in 2011) Reason for follow up: annual (LAST SEEN 05/2020) Equipment type: CPAP Equipment obtained from: [employer] (getting supplies as needed) Mask style: Nasal Mask brand: Respironics (Dreamwear) Backup mask available: Yes (old mask) Last cushion change: 3 days ago Prior sleep studies: Yes Year and Where: 2011 - [facility] Type of Sleep Study: Polysomnography HPI additional information: STAN MONTANEZ was diagnosed to have moderate, AHI 17.7, obstructive/central sleep apnea-hypopnea syndrome and returned today for CPAP therapy annual follow- up. Sleep Study - Results Type of Sleep Study: Polysomnography Prior sleep studies: Yes Year and Where: 2011 - [facility] CPAP Compliance Data - Data Reviewed with Patient Average duration of nightly device use: 5 HOURS 14 MINUTES Compliance rate %: 58 (90% COMPL 30 DAY) Current pressure setting (cmH2O): 10-20 Average residual AHI: 5.8 Central apnea: 4.7 Obstructive apnea: .5 Average large leak: 14.2 Subjective Missed days of use due to: reports: family emergency (family members ill, sister from breast cancer; friend illness/surgery for colon blockage), travel (used different portable CPAP) Patient concerns: denies: aerophagia, mask discomfort, air blowing in eyes, mask leak noise, condensation in mask/hose, nasal congestion, dry mouth, nose, throat, epistaxis, other Observed to snore while using device: No Current pressure setting perceived as: comfortable (LOVES THE NEW DREAM WEAR, RESMED) On therapy, patient: reports: sleeping better, awakening more refreshed, being more awake and alert during the day, more rested overall, other (still taking a daily nap in his chair, 1.5 hours). denies: drowsiness while driving Initial [place] Sleepiness Scale score: 17 (in 2011) Current [place] Sleepiness Scale score: 9 (2021) Allergies and Home Medications Known drug allergies: No Drug allergies reviewed: Yes Home medication list reviewed: Yes (no changes) Review of Systems Review of systems same as previous: No (GERD (Dany) surgery 12/26) Physical Exam Vital signs obtained and entered by: JAYDEN GUZMAN Blood Pressure: 131/95 (LEFT, PULSE 59) Cuff size: regular Heart Rate: 68 O2 Saturation: 98 (WITH PAPER MASK) Height: 5 ft 8 in Weight: 174 lb (WITH CLOTHES) Weight change since last visit: 14 lb loss Body Mass Index: 26.4 BMI Classification: Overweight Impression and Plan 1. Obstructive and Central Sleep Apnea-Hypopnea Syndrome, moderate, with good treatment compliance and fair apnea control with minimal elevation of residual AHI. On CPAP therapy, the patient has better sleep quality and is more rested overall. He has had a very stressful year. He has multiple family member illnesses and his sister from breast cancer. He had a friend who had a double colon blockage whom he help post surgery for several weeks. He was using his travel CPAP some of the time because he was not at home but other times he just did not use it due to the stress. He is home and using his CPAP with good compliance in the last month. He is using a Dreamwear nasal mask that is very comfortable for him. He has significant improvement of his sleep apnea. Patient's apnea severity and rationale for treatment to reduce apnea, improve sleep quality and reduce cardiovascular and cerebrovascular events was reviewed. He is cycling 3 times a week and has lot 13 pounds since last appointment. He was encouraged to continue to try to lose weight to improve his overall health and reduce apneas. * Continue auto CPAP pressure at 10-20 cmH2O * Notify me if snoring with mask or feeling that the pressure is too much or too little * Continu to try to lose weight * Call this office if any problems using CPAP * Return for follow up in 1 year, or sooner if concerns arise Counseling Topics: Spare mask, Weight loss health impact Visit Type: In Office Time Spent with Patient (minutes): 21 Provider Statement: I spent 100% of the Face to Face Visit with the patient with greater than 50% spent counseling the patient and coordination of care.
[2021-05-20 10:11] VITALS: BP 131/95
== END 2021-05-20 09:22 | disposition home or self-care (01) ==
LOC: SC 09:21
PROVIDERS: ATTEND Nurse Practitioner Family
DX: G47.33 Obstructive sleep apnea (adult) (pediatric) (principal); G47.31 Primary central sleep apnea
CPT/HCPCS: 99213; G0463; 99212

== ENCOUNTER 2021-09-06 13:50 | Outpatient (CLI) | payer MEDICARE, OTHER ==
[2021-09-06 17:55] LABS: BASOPHILS % (AUTO) 0.8 %; EOSINOPHILS # (AUTO) 0.1 10^3/uL (0.0-0.7); EOSINOPHILS % (AUTO) 2.1 %; HCT - HEMATOCRIT 48.7 % (42.0-52.0); HGB - HEMOGLOBIN 15.8 g/dL (14.0-18.0); LYMPHOCYTES # (AUTO) 1.2 10^3/uL (1.5-3.5); LYMPHOCYTES % (AUTO) 23.1 %; MEAN CORPUSCULAR HEMOGLOBIN 29.1 pg (27.0-31.0); MEAN CORPUSCULAR HGB CONC 32.4 g/dL (32.0-36.0); MEAN CORPUSCULAR VOLUME 89.7 fL (80.0-94.0); MEAN PLATELET VOLUME 9.1 fL (7.4-11.4); MONOCYTES # (AUTO) 0.5 10^3/uL (0.0-1.0); MONOCYTES % (AUTO) 9.8 %; NEUTROPHILS # (AUTO) 3.4 10^3/uL (1.5-6.6); PLT - PLATELET COUNT 374 10^3/uL (130-450); RED BLOOD COUNT 5.43 10^6/uL (4.70-6.10); RED CELL DISTRIBUTION WIDTH 13.2 % (12.0-15.0); WHITE BLOOD COUNT 5.3 x10^3/uL (4.8-10.8)
[2021-09-06 18:18] LABS: ALBUMIN 4.1 g/dL (3.2-5.5); ALBUMIN/GLOBULIN RATIO 1.4 (1.0-2.2); BILIRUBIN,TOTAL 0.5 mg/dL (0.2-1.0); CALCIUM 9.4 mg/dL (8.5-10.3); CREATININE 0.8 mg/dL (0.6-1.2); CRP - C-REACTIVE PROTEIN 1.7 mg/dL (0-1.0); POTASSIUM 4.1 mmol/L (3.5-5.0)
[2021-09-06 20:54] LABS: ESTIMATED AVERAGE GLUCOSE 111 mg/dL (70-100); HEMOGLOBIN A1c% 5.5 % (4.27-6.07)
== END 2021-09-06 13:51 | disposition home or self-care (01) ==
LOC: LAB.N 13:50
PROVIDERS: ATTEND Nurse Practitioner
DX: D64.9 Anemia, unspecified (principal); M25.50 Pain in unspecified joint; D75.839 Thrombocytosis, unspecified; R21 Rash and other nonspecific skin eruption; R73.01 Impaired fasting glucose
CPT/HCPCS: 36415; 80053; 83036; 85025; 85651; 86140

== ENCOUNTER 2021-10-21 08:00 | Outpatient (CLI) | payer MEDICARE, OTHER ==
--- NOTE | 2021-10-21 14:47 | XRAY Report ---
PROCEDURE: Wrist 3 View RT INDICATIONS: RIGHT WRIST PAIN TECHNIQUE: 3 views of the wrist were acquired. COMPARISON: None FINDINGS: Bones: No fractures or dislocations. No suspicious bony lesions. Scaphoid view: Not obtained Soft tissues: No suspicious soft tissue calcifications. IMPRESSION: Unremarkable right wrist radiographs Reviewed by: Shane Morrow MD on 10/21/2021 1:46 PM AKDT Approved by: Shane Morrow MD on 10/21/2021 1:46 PM AKDT Station ID: [id number]
== END 2021-10-21 23:59 | disposition home or self-care (01) ==
LOC: DI.N 08:00
PROVIDERS: ATTEND Family Medicine
DX: M25.531 Pain in right wrist (principal)

== ENCOUNTER 2022-01-13 08:00 | Outpatient (CLI) | payer MEDICARE, OTHER ==
[2022-01-13 17:58] LABS: FECAL OCCULT BLOOD (FIT) POSITIVE (NEGATIVE)
== END 2022-01-13 23:59 | disposition home or self-care (01) ==
LOC: LAB.R 08:00
PROVIDERS: ATTEND Nurse Practitioner
DX: Z12.11 Encounter for screening for malignant neoplasm of colon (principal)
CPT/HCPCS: 82274

== ENCOUNTER 2022-01-17 12:30 | Outpatient (CLI) | payer MEDICARE, OTHER ==
--- NOTE | 2022-01-17 17:36 | MRI Report ---
PROCEDURE: Wrist RT W/O INDICATIONS: FRACTURE OF PROXIMAL THIRD OF NAVICULAR TECHNIQUE: Noncontrast coronal proton density fast spin echo and T2 fast spin echo with fat saturation; coronal 3-D gradient echo, axial T1 spin echo and T2 fast spin echo with fat saturation, sagittal T1 spin ech o through the wrist. COMPARISON: Wrist radiograph dated 12/13/2021 and 10/21/2021. FINDINGS: Image quality: Excellent. Bones and cartilage: The carpal bones are normally aligned. There is no marrow edema. No acute fract ure or dislocation. No evidence of scaphoid fracture. No evidence of osteonecrosis. Mild to moderate osteoarthritic changes throughout wrist joints are seen with joint space narrowing and subchondral sc lerosis. Carpal ligaments: Widened scapholunate interval is seen with attenuated appearance of scapholunate li gament suggestive of moderate to high-grade partial-thickness tear involving scapholunate ligament. T he lunotriquetral ligament is intact. In the absence of intra-articular contrast, the extrinsic carpa l ligaments are not well identified. On sagittal images, the pisohamate ligament appears intact. Triangular fibrocartilage complex: The triangular fibrocartilage appears intact. The adjacent menis balwinder homolog appears normal in the absence of intra-articular contrast. The extensor carpi ulnaris te ndon is normal in location and morphology. Tendons and soft tissues: The carpal tunnel structures appear normal, including the median nerve. T he ulnar nerve appears normal within Guyon's canal. Thickened extensor carpi radialis longus and brev is tendons are seen at the level of proximal carpal row which corresponds to patient's reported area of pain suggestive of tendinosis. Other extensor tendons are intact. No soft tissue ganglion cysts. IMPRESSION: 1. No scaphoid fracture is seen. No marrow edema. No evidence of osteonecrosis. Mild to moderate wris t joint osteoarthritis. 2. Suggestion of moderate to high-grade partial thickness tear involving scapholunate ligament with w idening of scapholunate interval and intrasubstance T2 hyperintense signal. Lunotriquetral ligament i s intact. 3. Triangular fibrocartilage complex is grossly intact. 4. Suggestion of tendinosis involving extensor carpi ulnaris longus and brevis tendons at the level o f proximal carpal row. No other extensor or flexor tendon pathology is seen. Reviewed by: Thomas Boggs MD on 01/17/2022 5:35 PM PDT Approved by: Thomas Boggs MD on 01/17/2022 5:35 PM PDT Station ID: [id number]
== END 2022-01-17 12:31 | disposition home or self-care (01) ==
LOC: DI 12:30
PROVIDERS: ATTEND Physician Assistant Surgical
DX: S62.034A Nondisplaced fracture of proximal third of navicular [scaphoid] bone of right wrist, initial encounter for closed fracture (principal); M19.031 Primary osteoarthritis, right wrist

== ENCOUNTER 2022-01-25 08:00 | Outpatient (CLI) | payer MEDICARE, OTHER ==
--- NOTE | 2022-01-25 15:58 | XRAY Report ---
PROCEDURE: Hand 3 View RT INDICATIONS: RIGHT HAND/WRIST PAIN BILAT AP FOR COMPARRISON TECHNIQUE: 4 views of the right hand and one view of the left hand acquired. COMPARISON: MR wrist 01/17/2022. Right wrist radiographs 12/13/2021 FINDINGS: Bones: No acute osseous fracture identified. Alignment is unchanged. There is mild widening of the sc apholunate interval that is symmetric compared to the contralateral left side. Soft tissues: No suspicious soft tissue calcifications. IMPRESSION: Symmetric widening of the scapholunate intervals bilaterally, which may be related to underlying liga mentous laxity or bilateral deficiency. No acute osseous fracture. Reviewed by: Nico Moeller MD on 01/25/2022 3:57 PM PDT Approved by: Nico Moeller MD on 01/25/2022 3:57 PM PDT Station ID: [id number]
== END 2022-01-25 23:59 | disposition home or self-care (01) ==
LOC: DI.WOS 08:00
PROVIDERS: ATTEND Physician Assistant Surgical
DX: S63.511A Sprain of carpal joint of right wrist, initial encounter (principal)

== ENCOUNTER 2022-05-06 10:22 | Day surgery (SDC) | payer MEDICARE, OTHER ==
--- NOTE | 2022-05-06 08:59 | ANESTHESIA ---
Pre-Anesthesia VS, & Labs - Diagnosis hx colon polyps - Procedure colonoscopy Height: 5 ft 8 in - NPO >8 hours - Lab Results Lab results reviewed: Yes Home Medications and Allergies Dupilumab [Dupixent] 300 mg SQ ONCE 11/05/19 Allergies/Adverse Reactions: Allergies Allergy/AdvReac Type Severity Reaction Status Date / Time No Known Drug Allergies Allergy Verified 11/05/19 10:59 Anes History & Medical History - Anesthetic History Anesthesia Complications: reports: No previous complications Family history of Anesthesia Complications: Denies Family history of Malignant Hyperthermia: Denies - Medical History Cardiovascular: reports: High cholesterol Pulmonary: reports: Sleep apnea, CPAP use Gastrointestinal: reports: None Urinary: reports: Benign prostate hypertrophy, Kidney stones Neuro: reports: None Musculoskeletal: reports: Osteoarthritis Endocrine/Autoimmune: reports: None Blood Disorders: reports: None Skin: reports: Eczema Smoking Status: Never smoker - Surgical History General: reports: Colonoscopy Exam General: Alert, Oriented x3, Cooperative Dental: WNL Mouth Openin Fingerbreadth Neck Mobility: Normal Mallampati classification: II Respiratory: Lungs clear Cardiovascular: Regular rate Plan Anesthesia Type: Total IV Consent for Procedure(s) Verified and Reviewed: Yes Code Status: Attempt Resuscitation ASA classification: 2-Mild systemic disease Is this case an emergency?: No
[~2022-05-06 10:22] MED LIST: PROPOFOL 500 MG/50 ML 500 MG/50 ML VIAL ONE
[2022-05-06] MEDS ORDERED: LACTATED RINGERS 1,000 ML IV ONE ×2 (10:28→11:32)
[2022-05-06] MEDS ORDERED: MIDAZOLAM 2 MG/2 ML VIAL ONE (10:50)
--- NOTE | 2022-05-06 12:13 | ANESTHESIA POST OP EVALUATION ---
Anesthesia Post Eval - Post Anesthesia Eval Vitals: Last Vital Signs Temp 36.0 C L 05/06/22 12:02 Pulse 62 05/06/22 12:02 Resp 17 05/06/22 12:02 BP 89/60 L 05/06/22 12:02 Pulse Ox 92 05/06/22 12:02 O2 Flow Rate CV Function Including HR & BP: Stable Pain Control: Satisfactory Nausea & Vomiting: Negative Mental Status: Baseline Respiratory Status: Airway Patent Hydration Status: Satisfactory Anesthesia Complications: None
[2022-05-06 12:55] VITALS: BP 98/69
== END 2022-05-06 10:23 | disposition home or self-care (01) ==
LOC: SDS 10:22
PROVIDERS: ATTEND Surgery
DX: Z12.11 Encounter for screening for malignant neoplasm of colon (principal); K57.30 Diverticulosis of large intestine without perforation or abscess without bleeding; G47.33 Obstructive sleep apnea (adult) (pediatric); Z86.010 Personal history of colon polyps; Z80.0 Family history of malignant neoplasm of digestive organs
CPT/HCPCS: G0105; J7120

== ENCOUNTER 2022-06-21 08:19 | Outpatient (CLI) | payer MEDICARE, OTHER ==
[2022-06-21 09:03] VITALS: BP 126/78
--- NOTE | 2022-06-21 09:03 | SLEEP CARE CONSULTATION ---
Information from patient questionnaire entered by Pinky Carbajal. I have reviewed and concur with the information entered by Pinky Carbajal. This document represents the service I personally performed and the decisions made by me, Pat Ross ARNP. History of Present Illness Service Date and Time: 06/21/2022 0819 Previous diagnosis: Moderate, Obstructive Sleep Apnea-Hypopnea Syndrome, Central Sleep Apnea-Hypopnea Syndrome AHI: 17.7 (in 2011) Reason for follow up: annual (LAST SEEN 05/2021) Equipment type: CPAP (RESMED Airsense 10, s/u 12/2017, SD CARD NEEDED) Equipment obtained from: [employer] (getting supplies as needed) Mask style: Nasal Mask brand: Respironics (Dreamwear) Backup mask available: Yes (old mask) Last cushion change: Monday Prior sleep studies: Yes Year and [facility] Type of Sleep Study: Polysomnography HPI additional information: STAN MONTANEZ was diagnosed to have moderate, AHI 17.7, obstructive and central sleep apnea-hypopnea syndrome and returned today for CPAP therapy annual follow- up. Sleep Study - Results Type of Sleep Study: Polysomnography Prior sleep studies: Yes Year and Where: 2011 - [facility] CPAP Compliance Data Compliance data discussion: Has a travel cpap that he uses when he is traveling. He did not bring in his SD card, we were unable to get updated data from his machine. He states he is using his CPAP nightly and has no issues. He states he sleeps for about 4-6 hours a night. He has dogs that get him up at night. Subjective Missed days of use due to: reports: other (will fall asleep occasionally when watching TV and not have mask on) Patient concerns: reports: other (run out of water in reservoir 3/[address] thru night; using an external reservoir). denies: aerophagia, mask discomfort, air blowing in eyes, mask leak noise, condensation in mask/hose, nasal congestion, dry mouth, nose, throat, epistaxis Observed to snore while using device: No Current pressure setting perceived as: comfortable On therapy, patient: reports: sleeping better, awakening more refreshed, being more awake and alert during the day, more rested overall. denies: drowsiness while driving Initial [place] Sleepiness Scale score: 17 (in 2012) Current [place] Sleepiness Scale score: 14 (06/21/22) Allergies and Home Medications Drug allergies reviewed: Yes (NKDA) Home medication list reviewed: Yes (Dupixent 300 mg 2 x month, injectable) Review of Systems Review of systems same as previous: Yes (no changes) Physical Exam Vital signs obtained and entered by: PINKY Huff MA Blood Pressure: 126/78 (LEFT ARM) Cuff size: regular Heart Rate: 64 O2 Saturation: 98 Height: 5 ft 8 in Weight: 189 lb 3.2 oz Body Mass Index: 28.8 BMI Classification: Overweight Impression and Plan 1. Obstructive and Central Sleep Apnea-Hypopnea Syndrome, moderate, with unknown treatment compliance and unknown apnea control. On CPAP therapy, the patient has better sleep quality and is more rested overall. Patient states he does use his CPAP 4-6 hours nightly and will take his travel CPAP when he goes on vacations. He did not bring in his SD card for his [employer]Med Airsense 10 and we were unable to obtain data online. Patient states he will bring in the SD card so that we can obtain the download. He has no issues with using his CPAP and is comfortable with its use. Patient's apnea severity and rationale for treatment to reduce apnea, improve sleep quality and reduce cardiovascular and cerebrovascular events was reviewed. 2. Overweight, unspecified. Currently patients BMI is 28.8. Obesity increases the risk of apnea, CPAP pressure requirements and overall health risks especial ly cardiovascular and diabetes. Thus patient is advised to lose weight. * Continue auto CPAP pressure at 10-20 cmH2O * Patient to bring in SD card to obtain therapy data * Update supplies * Notify me if snoring with mask or feeling that the pressure is too much or too little * Attempt to lose weight * Call this office if any problems using CPAP * Return for follow up in 1 year, or sooner if concerns arise Counseling Topics: Spare mask, Weight loss health impact Visit Type: In Office Time Spent with Patient (minutes): 22 Provider Statement: I spent 100% of the Face to Face Visit with the patient with greater than 50% spent counseling the patient and coordination of care.
== END 2022-06-21 08:20 | disposition home or self-care (01) ==
LOC: SC 08:19
PROVIDERS: ATTEND Nurse Practitioner Family
DX: G47.33 Obstructive sleep apnea (adult) (pediatric) (principal); G47.31 Primary central sleep apnea; E66.3 Overweight; Z68.28 Body mass index [BMI] 28.0-28.9, adult
CPT/HCPCS: 99213; G0463; 99212

== ENCOUNTER 2022-07-23 07:26 | Outpatient (CLI) | payer MEDICARE, OTHER ==
--- NOTE | 2022-07-25 15:37 | MRI Report ---
PROCEDURE: CERVICAL SPINE WO INDICATIONS: CERVICAL RADICULOPATHY TECHNIQUE: Noncontrast sagittal T1 spin echo and T2 fast spin echo, sagittal STIR, foraminal oblique sagittal T2 fast spin echo, and axial gradient echo or T2 fast spin echo through the cervical spine. COMPARISON: None. FINDINGS: Degenerative straightening and slight reversal of the usual cervical lordosis. No listhesis. Vertebra l body heights maintained. No suspicious focal marrow signal abnormality or bone marrow edema. Prever tebral and paraspinous soft tissues are normal. No cord signal abnormality or syrinx. C2-C3: Moderate bilateral neural foraminal narrowing due to facet and uncovertebral hypertrophy. No spinal canal stenosis. C3-C4: Moderate bilateral neural foraminal narrowing due to facet and uncovertebral hypertrophy. Ce ntral disc-osteophyte complex flattens the ventral cord slightly producing mild spinal canal stenosis . C4-C5: Moderate bilateral neural foraminal narrowing due to facet and uncovertebral hypertrophy. Roberto tral disc-osteophyte complex flattens ventral cord slightly producing mild spinal canal stenosis. C5-C6: Moderate right and mild left neural foraminal narrowing due to facet and uncovertebral hypert rophy. Posterior disc-osteophyte complex flattens the ventral cord producing mild spinal canal stenos is. C6-C7: Posterior disc-osteophyte complex flattens the left paracentral cord producing mild spinal ca nal stenosis. Moderate left and mild right neural foraminal narrowing due to facet and uncovertebral hypertrophy. C7-T1: Moderate bilateral neural foraminal narrowing due to facet and uncovertebral hypertrophy. No spinal canal stenosis. IMPRESSION: Degrees of neural foraminal narrowing, with numerous sites of moderate neural foraminal narrowing. Co rrelate for a corresponding radicular symptoms. Reviewed by: Slava Lai MD on 07/25/2022 3:36 PM PDT Approved by: Slava Lai MD on 07/25/2022 3:36 PM PDT Station ID: [id number]
== END 2022-07-23 07:27 | disposition home or self-care (01) ==
LOC: DI 07:26
PROVIDERS: ATTEND Physician Assistant Surgical
DX: M47.812 Spondylosis without myelopathy or radiculopathy, cervical region (principal); M48.02 Spinal stenosis, cervical region

== ENCOUNTER 2023-06-21 08:23 | Outpatient (CLI) | payer MEDICARE, OTHER ==
--- NOTE | 2023-06-21 09:04 | Sleep Patient Instructions ---
Sleep Center Visit Summary - Patient Visit Information Reason for Visit: Annual Follow up - Patient Instructions Additional Instructions: You will continue with CPAP therapy with pressure set at 10-20 cmH2O. A supply prescription will be updated with your DME. I have added an order for a new CPAP. Please call us to set up compliance follow up visit once you have machine. We encourage you to continue to try to lose weight. Please follow up with the sleep care office one month after obtaining new CPAP. - Clinic Information Contact: [facility] [address] [place] [address] [email or web address] T: [phone]
--- NOTE | 2023-06-21 09:08 | SLEEP CARE CONSULTATION ---
Information from patient questionnaire entered by Pinky Carbajal. I have reviewed and concur with the information entered by Pinky Carbajal. This document represents the service I personally performed and the decisions made by me, Pat Ross ARNP. History of Present Illness Service Date and Time: 06/21/2023 08 Previous diagnosis: Moderate, Obstructive Sleep Apnea-Hypopnea Syndrome, Central Sleep Apnea-Hypopnea Syndrome AHI: 17.7 (in 2011) Reason for follow up: annual (LAST SEEN 06/2022) Equipment type: CPAP (RESMED Airsense 10, s/u 12/2017, SD CARD NEEDED) Equipment obtained from: [email or web address] (getting supplies as needed) Mask style: Nasal Mask brand: Respironics (Dreamwear) Backup mask available: Yes Last cushion change: 2 weeks ago Prior sleep studies: Yes Year and Where: 2011 - [facility] Type of Sleep Study: Polysomnography HPI additional information: STAN MONTANEZ was diagnosed to have moderate, AHI 17.7, obstructive/central sleep apnea-hypopnea syndrome and returned today for CPAP therapy annual follow- up. Sleep Study - Results Type of Sleep Study: Polysomnography Prior sleep studies: Yes Year and Where: 2011 - [facility] CPAP Compliance Data - Data Reviewed with Patient Average duration of nightly device use: 4 HRS 45 MINS Compliance rate %: 52 (06/06/22-06/05/23; 296/365 days used) Current pressure setting (cmH2O): 10-20 Average residual AHI: 4.5 Central apnea: 3.5 Obstructive apnea: 0.4 Average large leak: 0.1 Compliance data discussion: He says his machine stopped working about 12 days ago. He woke up with a face full of smoke and the machine would not stay running. Subjective Missed days of use due to: reports: other (CPAP broke) Patient concerns: denies: aerophagia, mask discomfort, air blowing in eyes, mask leak noise, condensation in mask/hose, nasal congestion, dry mouth, nose, throat, epistaxis Observed to snore while using device: No Current pressure setting perceived as: comfortable On therapy, patient: reports: sleeping better, awakening more refreshed, being more awake and alert during the day, more rested overall, drowsiness while driving (occasionally) Initial [place] Sleepiness Scale score: 17 (in 2012) Current [place] Sleepiness Scale score: 16 (06/21/23) Allergies and Home Medications Known drug allergies: No Drug allergies reviewed: Yes Home medication list reviewed: Yes (Dupixent 300 mg inj 2 times a month) Allergy and home medication list: Allergies No Known Drug Allergies Allergy (Verified 06/19/23 09:43) Review of Systems Review of systems same as previous: Yes (NO CHANGE) Physical Exam Vital signs obtained and entered by: PINKY Huff MA Blood Pressure: 124/76 (LEFT ARM) Cuff size: regular Heart Rate: 61 O2 Saturation: 96 Height: 5 ft 8 in Weight: 178 lb 12.8 oz Body Mass Index: 27.1 BMI Classification: Overweight Impression and Plan 1. Obstructive/Central Sleep Apnea-Hypopnea Syndrome, moderate, with fair treatment compliance and good apnea control. On CPAP therapy, the patient has better sleep quality and is more rested overall. His Airsense 10 stopped working and was last updated in 2018. The patients CPAP is over 5 years old and of reasonable use. In addition, it is not staying running and has smoky odor, a sign of malfunction. Thus, the CPAP will be updated. A DWO prescription will be made. Compliance guidelines for new device and follow up discussed. Patient's apnea severity and rationale for treatment to reduce apnea, improve sleep quality and reduce cardiovascular and cerebrovascular events was reviewed. 2. Overweight, unspecified. Currently patients BMI is 27.1. Obesity increases the risk of apnea, CPAP pressure requirements and overall health risks especially cardiovascular and diabetes. Thus patient is advised to lose weight. * Continue auto CPAP pressure at 10-20 cmH2O * Update machine * Update supply prescription * Notify me if snoring with mask or feeling that the pressure is too much or too little * Attempt to lose weight * Call this office if any problems using CPAP * Return for follow up one month after obtaining new device, or sooner if concerns arise Counseling Topics: Spare mask, Weight loss health impact Prescriptions: Auto CPAP, Device supplies Follow up with Sleep Care in: other (compliance followup with new device) Visit Type: In Office Time Spent with Patient (minutes): 20 Provider Statement: I spent 100% of the Face to Face Visit with the patient with greater than 50% spent counseling the patient and coordination of care.
[2023-06-21 09:10] VITALS: BP 124/76; O2SAT 96
== END 2023-06-21 08:24 | disposition home or self-care (01) ==
LOC: SC 08:23
PROVIDERS: ATTEND Nurse Practitioner Family
DX: G47.33 Obstructive sleep apnea (adult) (pediatric) (principal); E66.3 Overweight; Z68.27 Body mass index [BMI] 27.0-27.9, adult
CPT/HCPCS: 99213; G0463; 99212

== ENCOUNTER 2023-08-03 08:43 | Outpatient (CLI) | payer MEDICARE, OTHER ==
--- NOTE | 2023-08-03 09:09 | Sleep Patient Instructions ---
Sleep Center Visit Summary - Patient Visit Information Reason for Visit: First compliance with new device follow-up - Patient Instructions Additional Instructions: You were here for follow up of CPAP therapy. You will be continued on CPAP therapy with pressure at 10 cmH2O. You should follow up with sleep care in 12 months. You may contact us sooner for any questions or concerns. - Clinic Information Contact: [facility] [address] [place] [address] [email or web address] T: [phone]
--- NOTE | 2023-08-03 09:14 | SLEEP CARE CONSULTATION ---
Information from patient questionnaire entered by Pinky Carbajal. I have reviewed and concur with the information entered by Pinky Carbajal. This document represents the service I personally performed and the decisions made by me, Pat Ross ARNP. History of Present Illness Service Date and Time: 08/03/2023 0843 Previous diagnosis: Moderate, Obstructive Sleep Apnea-Hypopnea Syndrome, Central Sleep Apnea-Hypopnea Syndrome AHI: 17.7 (in 2011) Reason for follow up: first compliance after device update Equipment type: CPAP (RESMED Airsense 10; 06/2023) Equipment obtained from: [employer] (getting supplies as needed) Mask style: Nasal Mask brand: Respironics (Dreamwear) Backup mask available: Yes Last cushion change: 2 days ago [facility]: Yes [facility] Type [facility]: [facility] HPI additional information: STAN MONTANEZ was diagnosed to have moderate, AHI 17.7, obstructive/central sleep apnea-hypopnea syndrome and returned today for CPAP therapy first compliance after updating device follow-up. Sleep Study - Results Type of Sleep Study: Polysomnography Prior sleep studies: Yes [facility] Compliance Data - Data Reviewed with Patient Average duration of nightly device use: 6 HRS 55 MINS Compliance rate %: 87 (06/29/23-07/28/23; days used) Current pressure setting (cmH2O): 10-10 Average residual AHI: 3.4 Central apnea: 2.3 Obstructive apnea: 0.6 Hypopnea: 0.4 Average large leak: 0.4 L/min Compliance data discussion: He used an older machine he had for a couple nights. Subjective Missed days of use due to: reports: other (using other machine) Patient concerns: reports: dry mouth, nose, throat (dry mouth, water running out of chamber). denies: aerophagia, mask discomfort, air blowing in eyes, mask leak noise, condensation in mask/hose, nasal congestion, epistaxis Observed to snore while using device: No Current pressure setting perceived as: comfortable On therapy, patient: reports: sleeping better, awakening more refreshed, being more awake and alert during the day, more rested overall. denies: drowsiness while driving Initial [place] Sleepiness Scale score: 17 (in 2011) Current [place] Sleepiness Scale score: 14 (08/03/23) Allergies and Home Medications Known drug allergies: No Drug allergies reviewed: Yes Home medication list reviewed: Yes (no changes) Allergy and home medication list: Allergies No Known Drug Allergies Allergy (Verified 08/01/23 14:21) Review of Systems Review of systems same as previous: Yes (NO CHANGE) Physical Exam Vital signs obtained and entered by: PINKY Huff MA Blood Pressure: 134/83 (LEFT ARM) Cuff size: regular Heart Rate: 60 O2 Saturation: 97 Height: 5 ft 8 in Weight: 187 lb 3.2 oz Body Mass Index: 28.4 BMI Classification: Overweight Impression and Plan 1. Obstructive/Central Sleep Apnea-Hypopnea Syndrome, moderate, with good treatment compliance and good apnea control. On CPAP therapy, the patient has better sleep quality and is more rested overall. Patient's machine was previously set at 10-20 cmH2O. His machine came set up at 10 cmH2O with his updated device. This setting seems to be controlling his sleep apnea well with mild reduction of residual AHI and he feels the pressure is comfortable so I have readjusted it to 10 cmH2O on his machine. Patient has significant improvement of their sleep apnea and is satisfied with current CPAP therapy. He did get some dry mouth because his water chamber ran out of water about 4 hours into the night. I adjusted his humidity down from 4 to 3 to see if this will help the water in the chamber to last longer. He says he has an add on reserve humidity chamber that he will see if he can use with his machine if it continues to run out too soon. Patient denies problems with nasal congestion, epistaxis, skin irritation or aerophagia. Patient's apnea severity and rationale for treatment to reduce apnea, improve sleep quality and reduce cardiovascular and cerebrovascular events was reviewed. 2. Overweight, unspecified. Currently patients BMI is 28.4. Obesity increases the risk of apnea, CPAP pressure requirements and overall health risks especially cardiovascular and diabetes. Thus patient is advised to continue to try to lose weight. * Continue CPAP pressure at 10 cmH2O * Notify me if snoring with mask or feeling that the pressure is too much or too little * Continue to try to lose weight * Call this office if any problems using CPAP * Return for follow up in 12 months, or sooner if concerns arise Counseling Topics: Spare mask, Weight loss health impact Follow up with Sleep Care in: 1 year Visit Type: In Office Time Spent with Patient (minutes): 21 Provider Statement: I spent 100% of the Face to Face Visit with the patient with greater than 50% spent counseling the patient and coordination of care.
[2023-08-03 09:15] VITALS: BP 134/83; O2SAT 97
== END 2023-08-03 08:44 | disposition home or self-care (01) ==
LOC: SC 08:43
PROVIDERS: ATTEND Nurse Practitioner Family
DX: G47.33 Obstructive sleep apnea (adult) (pediatric) (principal); G47.31 Primary central sleep apnea
CPT/HCPCS: 99213; G0463; 99212